=== PATIENT | male | born 1985 | race Caucasian/White ===

== ENCOUNTER 2018-10-26 10:17 | Emergency (ER) | payer MEDICAID ==
[~2018-10-26] VITALS: Ht 182.9 cm; Wt 139.1 kg
[2018-10-26 10:22] VITALS: BP 172/77
[2018-10-26] MEDS ORDERED: CHLO473M3 PO (10:35)
[2018-10-26] MEDS ORDERED: TRAM50TA2 PO (10:35)
[2018-10-26] MEDS ORDERED: IBUP-1986 PO (10:35)
[2018-10-26] MEDS ORDERED: AMOX500C2 PO (10:35)
== END 2018-10-26 10:44 | disposition home or self-care (01) ==
LOC: ER 10:18
DX: K04.7 Periapical abscess without sinus (principal); K02.9 Dental caries, unspecified; Z79.2 Long term (current) use of antibiotics; Z79.899 Other long term (current) drug therapy
CPT/HCPCS: 99283